=== PATIENT | female | born 1960 | race American Indian/Alaskan Native ===

== ENCOUNTER 2019-07-17 16:08 | Emergency (ER) | payer SELFPAY ==
--- NOTE | 2019-07-17 16:26 | Event Note ---
ED Screening Note ED Screening Note: states she has substernal CP states she also had palpitations states it radiates to the epigastric region states that her bp was mildly elevated 150/95 no sob no n/v no leg swelling no recent travel no recent surgery PMHx GERD, MG This initial assessment/diagnostic orders/clinical plan/treatment(s) is/are subject to change based on patients health status, clinical progression and re- assessment by fellow clinical providers in the ED. Further treatment and workup at subsequent clinical providers discretion. Patient/guardian urged not to elope from the ED as their condition may be serious if not clinically assessed and managed. Initial orders include: CP protocol
[2019-07-17 17:27] LABS: Basophils % (Auto) 0.4 % (0.0-1.8); Eosinophils % (Auto) 0.3 % (0.0-4.3); Hematocrit 44.7 % (30.3-42.9); Hemoglobin 15.2 gm/dl (10.1-14.3); Lymphocytes # (Auto) 2.1 K/mm3 (1.2-5.4); Lymphocytes % (Auto) 18.5 % (13.4-35.0); Mean Corpuscular HGB Conc 34 % (30-34); Mean Corpuscular Volume 90 fl (79-97); Monocytes # (Auto) 0.8 K/mm3 (0.0-0.8); Monocytes % (Auto) 7.2 % (0.0-7.3); Platelet Count 178 K/mm3 (140-440); Red Blood Count 4.96 M/mm3 (3.65-5.03); Red Cell Distribution Width 14.4 % (13.2-15.2)
--- NOTE | 2019-07-17 17:27 | XRay Report ---
CHEST 2 VIEWS INDICATION / CLINICAL INFORMATION: Chest pain. COMPARISON: None available. FINDINGS: SUPPORT DEVICES: None. HEART / MEDIASTINUM: No significant abnormality. LUNGS / PLEURA: No significant pulmonary or pleural abnormality. No pneumothorax. ADDITIONAL FINDINGS: No significant additional findings. IMPRESSION: 1. No acute findings. Signer Name: Franklyn Mcclellan MD Signed: 07/17/2019 5:22 PM Workstation Name: [id number]
[2019-07-17 17:39] LABS: INR 1.01 (0.87-1.13); Partial Thromboplastin Time 30.2 Sec. (24.2-36.6)
[2019-07-17 17:44] LABS: Alanine Aminotransferase 14 units/L (7-56); Albumin 4.4 g/dL (3.9-5); BUN/Creatinine Ratio 20; Blood Urea Nitrogen 12 mg/dL (7-17); Calcium 9.7 mg/dL (8.4-10.2); Hemolysis Index 12
[2019-07-17 18:09] LABS: Bilirubin,Urine NEG (Negative); Blood,Urine NEG (Negative); Color,Urine Yellow (Yellow); Mucus,Urine FEW /HPF; Protein,Urine <15 mg/dL mg/dL (Negative); Urobilinogen,Urine < 2.0 mg/dL (<2.0); WBC,Urine < 1.0 /HPF (0.0-6.0)
[2019-07-17 21:01] VITALS: BP 164/83
--- NOTE | 2019-07-17 22:45 | Emergency Department Report ---
ED General Adult HPI - General Chief complaint: High BP Stated complaint: CHEST PAIN/HBP Time Seen by Provider: 07/17/19 16:23 Source: patient Mode of arrival: Ambulatory Limitations: No Limitations - History of Present Illness Initial comments: states she has substernal chest discomfort states she also had palpitations intermittently 3 weeks states it radiates to the epigastric region states that her bp was mildly elevated 150/95 no sob no n/v no leg swelling no recent travel no recent surgery PMHx GERD, MG Patient has not been taking her Prilosec as she was prescribed. Patient has not seen her fitness leader for her myasthenia gravis in over 2 years. Patient reports she does not have a primary care provider. Onset/Timin -: week(s) Location: chest - Related Data Allergies Allergy/AdvReac Type Severity Reaction Status Date / Time No Known Allergies Allergy Unverified 07/17/19 16:17 ED Review of Systems ROS: Stated complaint: CHEST PAIN/HBP Other details as noted in HPI ED Past Medical Hx - Past Medical History Previous Medical History?: No Additional medical history: myesthenia gravis - Social History Smoking Status: Never Smoker Substance Use Type: None ED Physical Exam - General Limitations: No Limitations General appearance: alert, in no apparent distress - Head Head exam: Present: atraumatic, normocephalic - Eye Eye exam: Present: normal appearance - ENT ENT exam: Present: mucous membranes moist - Neck Neck exam: Present: normal inspection - Respiratory Respiratory exam: Present: normal lung sounds bilaterally. Absent: respiratory distress - Cardiovascular Cardiovascular Exam: Present: regular rate, normal rhythm. Absent: systolic murmur, diastolic murmur, rubs, gallop - GI/Abdominal GI/Abdominal exam: Present: soft, normal bowel sounds - Extremities Exam Extremities exam: Present: normal inspection - Back Exam Back exam: Present: normal inspection - Neurological Exam Neurological exam: Present: alert, oriented X3 - Psychiatric Psychiatric exam: Present: normal affect, normal mood - Skin Skin exam: Present: warm, dry, intact, normal color. Absent: rash ED Course Vital Signs 07/17/19 16:16 Temperature 97.6 F Pulse Rate 70 Respiratory 16 Rate Blood Pressure 164/83 O2 Sat by Pulse 99 Oximetry ED Medical Decision Making - Lab Data Result diagrams: 07/17/19 17:05 07/17/19 17:05 - Medical Decision Making states she has substernal chest discomfort states she also had palpitations intermittently 3 weeks states it radiates to the epigastric region states that her bp was mildly elevated 150/95 no sob no n/v no leg swelling no recent travel no recent surgery PMHx GERD, MG Patient has not been taking her Prilosec as she was prescribed. Patient has not seen her fitness leader for her myasthenia gravis in over 2 years. Patient reports she does not have a primary care provider. Chest x-ray is negative, patient has 2 negative troponin, EKG shows Atrial premature complex. CBC CMP and urinalysis within normal limits. Patient be discharged home with a referral to cardiology and her primary care provider. Patient is requesting a prescription for her omeprazole which is [id number]. Critical care attestation.: If time is entered above; I have spent that time in minutes in the direct care of this critically ill patient, excluding procedure time. ED Disposition Clinical Impression: Palpitations with regular cardiac rhythm, Heartburn Disposition: TO HOME OR SELFCARE Is pt being admited?: No Does the pt Need Aspirin: No Condition: Stable Instructions: Palpitations (ED), Gastroesophageal Reflux Disease (ED) Additional Instructions: Please take your chronic heartburn medication which is [id number]. Please follow-up with the golf teacher and a primary care provider. I have listed one below for your convenience. Referrals: OLVIN MENA MD [Primary Care Provider] - 3-5 Days [facility] [Provider Group] - 3-5 Days SARAH CASANOVA MD [Staff Physician] - 3-5 Days
== END 2019-07-18 00:20 | disposition home or self-care (01) ==
LOC: ED 16:08
DX: R00.2 Palpitations (principal); R12 Heartburn
CPT/HCPCS: 36415; 71046; 80053; 81001; 84484; 85025; 85610; 85730; 93005; 93010